=== PATIENT | female | born 1980 | race Caucasian/White ===

== ENCOUNTER 2022-09-02 17:29 | Emergency (ER) | payer OTHER, SELFPAY ==
[2022-09-02 17:43] VITALS: BP 130/77; PULSE 78; RESP 18; TEMP 36.3; O2SAT 100
--- NOTE | 2022-09-02 18:15 | ED.URI ---
HPI - URI/Sore Throat General Chief Complaint: Upper Respiratory Infection Stated Complaint: Vomiting,Body Aches,Cough Time Seen by Provider: 09/02/22 18:00 Source: patient Mode of arrival: ambulatory Limitations: no limitations History of Present Illness HPI Narrative: Patient presents today complaining of a one-week history of cough congestion with a 2 day history of vomiting, body aches, headache sweats, nausea, and subjective fever. Patient vomited once yesterday, but none since then. Denies sore throat. She has tried no [id number] treatment prior to arrival. Related Data Home Medications Medication Instructions Recorded Confirmed diclofenac sodium 75 mg 75 mg PO DAILY 09/02/22 09/02/22 tablet,delayed release duloxetine 30 mg capsule,delayed 30 mg PO DAILY 09/02/22 09/02/22 release omeprazole 20 mg capsule,delayed 20 mg PO DAILY 09/02/22 09/02/22 release Allergies Allergy/AdvReac Type Severity Reaction Status Date / Time No Known Allergies Allergy Verified 09/02/22 17:56 Review of Systems Review of Systems: CONSTITUTIONAL: Denies chills. + Body aches, fever, sweats EYES: Denies visual changes, redness, or discharge. ENT: Denies rhinorrhea, sore throat, or otalgia.+ congestion CARDIOVASCULAR: Denies chest pain, palpitations, or edema. RESPIRATORY: Denies dyspnea.+ cough GASTROINTESTINAL: Denies abdominal pain, or diarrhea.+ nausea, vomiting GENITOURINARY: Denies dysuria or hematuria. SKIN: Denies rash, itching, or wounds. MUSCULOSKELETAL: Denies back pain, joint pain, or myalgia. NEUROLOGIC: Denies numbness, tingling, or weakness.+ headache PSYCH: Denies depression or anxiety. [facility] Past Medical History Medical History (Updated 09/02/22 @ 18:20 by Bernice Aguila, GOLF SUPERINTENDENT, ) Ankylosing spondylitis Comments At time of signature, I have reviewed and agree with nursing past medical, surgical, social and family history unless otherwise noted. Please see nursing chart for further information. There is no relevant family history pertinent to the presenting complaint Exam Narrative: GENERAL: mildly ill-appearing, well-nourished, and in no acute distress. HEAD: Normocephalic, atraumatic. EYES: EOMI. No redness or drainage. Conjunctivae normal. ENT: Mucous membranes pink and moist. Nares clear. No rhinorrhea. TMs normal bilaterally. Throat normal. Uvula midline. NECK: Normal AROM. Supple. No lymphadenopathy. CHEST: No respiratory distress. Clear to auscultation. HEART: Regular rate and rhythm. No murmur appreciated. Normal peripheral pulses. ABDOMEN: Soft, nontender, nondistended, normal active bowel sounds. EXTREMITIES: Normal range of motion. No edema. SKIN: Warm, dry, no rash. Capillary refill normal. Normal skin turgor. NEURO: No focal deficits. Alert and oriented x3. Gait steady. PSYCH: Normal affect. No signs of depression or anxiety. Course Course Level of Care: Express Care Visit Vital Signs Vital signs: Vital Signs Temperature 97.3 F L 09/02/22 17:43 Pulse Rate 78 09/02/22 17:43 Respiratory Rate 18 09/02/22 17:43 Blood Pressure 130/77 09/02/22 17:43 Pulse Oximetry 100 09/02/22 17:43 Oxygen Delivery Room Air 09/02/22 17:43 Temperature 97.3 F L 09/02/22 17:43 Pulse Rate 78 09/02/22 17:43 Respiratory Rate 18 09/02/22 17:43 Blood Pressure 130/77 09/02/22 17:43 Pulse Oximetry 100 09/02/22 17:43 Oxygen Delivery Room Air 09/02/22 17:43 Reviewed. Pt has been instructed to follow up with her PCP regarding her elevated blood pressure today. MDM - URI/Sore Throat Differential Diagnosis Differential diagnosis: Likely upper respiratory infection, viral infection and influenza Lab Data Attestation: I reviewed the patient's lab results. Labs: Influenza A Screen Negative Reference Range: Negative Influenza B Screen Negative
== END 2022-09-02 18:22 | disposition home or self-care (01) ==
PROVIDERS: Emergency Provider Nurse Practitioner
DX: B34.9 Viral infection, unspecified (principal)
CPT/HCPCS: 87804; 99213; G0463

== ENCOUNTER 2022-11-25 07:44 | Outpatient (CLI) | payer OTHER, SELFPAY ==
--- NOTE | ~2022-11-25 | PE_ITS ---
EXAMINATION: PET skull to mid thigh DATE: 11/25/2022 09:44 INDICATION: Lung cancer TECHNIQUE: Blood glucose level was 86 mg/dL. 9.822 mCi of 18-fluorodeoxyglucose (18-FDG) was administ ered i.v. Low dose computed tomography (CT) images were acquired from the base of the brain to the pr oximal thighs for attenuation correction and anatomic localization. Positron emission tomography (PET ) images were acquired in the same distribution beginning 59 minutes after injection. Images includin g fused PET/CT images were reconstructed in axial, coronal, and sagittal planes. Automated exposure c ontrol technique was employed. The dose-length product was 481.20mGy-cm. COMPARISON: None FINDINGS: Head/neck: There is symmetric increased activity in the oral cavity, palatine tonsils, parotid glands, submandi bular glands, laryngeal muscles and ocular muscles without CT correlate, likely physiologic. No patho logically enlarged cervical lymphadenopathy or suspicious foci of increased FDG uptake in the visuali zed head or neck. Chest: Left-sided carotid bulb stimulator in expected position. 10 x 7 mm spiculated nodule in the superior segment of the left lower lobe with minimal FDG activity which remains lower than the level of the bl ood pool with maximal SUV of 2.3. No other pulmonary nodules, pneumonia, pulmonary edema or pleural e ffusion. Heart size is normal. No pericardial effusion. Thoracic aorta is normal in caliber. Mild upt karen extending along the distal esophagus which appears normal on CT likely related to salivary activi ty. No pathologically enlarged or FDG avid thoracic lymphadenopathy. Abdomen/pelvis/proximal thighs: Physiologic renal accumulation and excretion of FDG activity in the kidneys, bladder and along portio ns of ureters. Normal degree and heterogenous pattern of increased uptake throughout the liver withou t radiologic correlate or dominant FDG avid lesion. The gallbladder, pancreas, spleen and bilateral a drenal glands are normal. Mild to moderate uptake scattered throughout the bowels without radiologic correlate, also likely physiologic. There is moderate colonic diverticulosis with a sigmoid predomina nce. There is no adjacent inflammatory change to suggest diverticulitis. Normal appendix. Partial r im calcification along with a uterine fibroid. 2.7 cm right ovarian cyst. Small amount of likely phys iologic free fluid in the cul-de-sac. No other abnormal foci of increased FDG uptake or pathologicall y enlarged lymphadenopathy in the abdomen, pelvis or proximal thighs. Musculoskeletal: No suspicious lytic, blastic or FDG avid bone lesions. IMPRESSION: 1. Minimal FDG uptake associated with a 10 x 7 mm nodule in the superior segment of the left lower lo be. While reassuring this does not absolutely exclude a very slowly growing malignancy. Correlate wit h any prior outside imaging and consider 6 month follow-up noncontrast chest CT. Reviewed, dictated and finalized at location A. F CLINICAL OFFICER IMPRESSION: 1. Minimal FDG uptake associated with a 10 x 7 mm nodule in the superior segmen t of the left lower lobe. While reassuring this does not absolutely exclude a v kalina slowly growing malignancy. Correlate with any prior outside imaging and con mill operator helper 6 month follow-up noncontrast chest CT.
[2022-11-25 08:12] LABS: Glucose Point of Care 86 mg/dl (65-105)
== END 2022-11-25 07:45 | disposition home or self-care (01) ==
PROVIDERS: PCP Family Medicine; Visit Provider Internal Medicine Critical Care Medicine
DX: R91.1 Solitary pulmonary nodule (principal)
CPT/HCPCS: 78815; A9552

== ENCOUNTER 2022-12-06 10:04 | Outpatient (CLI) | payer OTHER, SELFPAY ==
--- NOTE | 2022-12-06 14:22 | WPDPFTINT ---
PFT Procedure Performed PFT Procedure Performed Spirometry with Pre/Post Bronchodilator Plethysmography (Lung Vol) Diffusing Cap (DLCO) Flow Vol Loop PFT Interpretation This is a pulmonary function test with pre and post-bronchodilator spirometry, plethysmography and diffusing capacity. The test was performed and results interpreted in accordance with the 2019 and 2005 ATS/ERS Task Force guidelines respectively using the Global Lung Function Initiative-2012 reference equations. Patient demonstrated good effort and cooperation. Reproducibility criteria were met. The quality of the pre bronchodilator spirometry maneuver was Grade A and post bronchodilator spirometry maneuver was Grade A. Findings: Spirometry: The contour the inspiratory and expiratory flow tracing are normal. The pre bronchodilator FVC is 3.50 L, 100% predicted. The pre bronchodilator FEV1 is 2.71 L, 95% predicted. The pre bronchodilator FEV1: FVC ratio 77%. The post bronchodilator FVC is 3.29 L, representing a 6% decrease. The post bronchodilator FEV1 is 2.76 L, representing a 2% increase. The post bronchodilator FEV1: FVC ratio was 84%. Plethysmography: The total lung capacity is 4.76 L, 97% predicted. The functional residual capacity is 2.86 L, 105% predicted. The functional residual volume is 1.26 L, 79% predicted. Diffusing capacity: The diffusing capacity unadjusted for hemoglobin and carboxyhemoglobin is 20.9, 90% predicted. The diffusing capacity adjusted for alveolar volume is 5.15, 108% predicted Impression: The spirometry is normal without evidence of an obstructive abnormality. There is no significant improvement after inhaling a single dose of albuterol. The lung volumes are normal. The diffusing capacity is normal. There are no prior studies for comparison
--- NOTE | 2022-12-06 14:24 | WPDSIXMINUTE ---
Six Minute Walk Procedure Procedure Performed Pulmonary Stress Test (6 min walk) Six Minute Walk Six Minute Walk: This is a 6 minute walk test. The test was performed and interpreted in accordance with the 2014 ERS/ATS task force guidelines. Findings: The patient's resting room air oxygen saturation measured by pulse oximetry was 98% and heart rate was 87 bpm. Patient ambulated for 396 meters and oxygen saturation remained 91 to 96%. Heart rate at the end of the study was 107 bpm. The patient did not qualify for supplemental oxygen at rest or with ambulation. There are no prior studies for comparison.
== END 2022-12-06 10:05 | disposition home or self-care (01) ==
PROVIDERS: PCP Family Medicine; Visit Provider Internal Medicine Critical Care Medicine
DX: R06.09 Other forms of dyspnea (principal); U09.9 Post COVID-19 condition, unspecified
CPT/HCPCS: 94060; 94618; 94726; 94729

== ENCOUNTER 2023-02-07 14:58 | Outpatient (CLI) | payer OTHER, SELFPAY ==
--- NOTE | ~2023-02-07 | MM_ITS ---
EXAMINATION: MM screening morenita BI w shahana HISTORY: Screening mammogram TECHNIQUE: Craniocaudal and mediolateral oblique 3-D tomosynthesis images were obtained and synthetic 2-D images were generated. CAD analysis was submitted and interpreted. COMPARISON: No prior mammogram is available for comparison at this institution. BREAST PARENCHYMAL COMPOSITION: The breasts are heterogeneously dense, which may obscure small masses . FINDINGS: RIGHT BREAST: An asymmetry is present in the posterior third of the outer breast on the craniocaudal view. LEFT BREAST: An asymmetry is present in the posterior third of the inner breast on the craniocaudal v iew. IMPRESSION: 1. Bilateral breast asymmetries which may represent the patient's baseline however no comparison is c urrently available. 2. Comparison with prior mammograms is necessary. BI-RADS Category 0: Incomplete: Needs comparison with prior mammograms. Reviewed, dictated and finalized at location A. IMPRESSION: 1. Bilateral breast asymmetries which may represent the patient's baseline chicas faustina no comparison is currently available. 2. Comparison with prior mammograms is necessary. BI-RADS Category 0: Incomplete: Needs comparison with prior mammograms.
== END 2023-02-07 14:59 | disposition home or self-care (01) ==
LOC: ANHIMG 15:02
PROVIDERS: PCP Family Medicine; Visit Provider Family Medicine
DX: Z12.31 Encounter for screening mammogram for malignant neoplasm of breast (principal); R92.8 Other abnormal and inconclusive findings on diagnostic imaging of breast
CPT/HCPCS: 77063; 77067

== ENCOUNTER 2023-03-21 12:19 | Outpatient (CLI) | payer OTHER, SELFPAY ==
--- NOTE | ~2023-03-21 | MMUS_ITS ---
EXAMINATION: MM diagnostic morenita BI w shahana, US breast BI limited HISTORY: Bilateral mammographic asymmetries reported on 02/07/2023 screening mammogram TECHNIQUE: Additional 3-D tomosynthesis images of both breasts were performed and synthetic 2-D image s were generated. CAD analysis was submitted and interpreted. High resolution upper outer and lower o uter quadrant right breast ultrasound examination and upper inner and lower inner quadrant left breas t ultrasound examination was performed. COMPARISON: 02/07/2023 bilateral screening mammogram 07/11/2020, 12/05/2018 outside mammogram examinations. FINDINGS: MAMMOGRAPHIC FINDINGS: Bilateral mammographic asymmetries are noted without discrete suspicious mass or architectural distor tion. Low-density around 6.5 mm circumscribed opacity with halo sign is noted in the lower outer right mayra st (ML Tomosynthesis image 14/) ULTRASOUND: Right breast: 6:00 5 cm from nipple: 3.6 x 4.4 x 5.4 mm sonolucency consistent with simple cysts 7:00 near nipple: 7.6 x 4.9 x 7.6 mm sonolucency with through transmission posterior enhancement cons istent with simple cyst No suspicious mass or shadowing is detected in the upper outer or lower outer quadrants of the right breast. Left breast: No suspicious mass or shadowing, cyst or other significant sonographic finding is noted in the upper or lower inner quadrants of the left breast.. IMPRESSION: 1. Benign findings 2. Routine mammographic screening is recommended BI-RADS Category 2: Benign finding(s). Reviewed, dictated and finalized at location A. IMPRESSION: 1. Benign findings 2. Routine mammographic screening is recommended BI-RADS Category 2: Benign finding(s).
== END 2023-03-21 12:20 | disposition home or self-care (01) ==
LOC: ANHIMG 12:27
PROVIDERS: PCP Family Medicine; Visit Provider Family Medicine
DX: R92.8 Other abnormal and inconclusive findings on diagnostic imaging of breast (principal)
CPT/HCPCS: 76642; 77062; 77066; G0279

== ENCOUNTER 2023-08-09 12:36 | Outpatient (CLI) | payer OTHER, SELFPAY ==
--- NOTE | ~2023-08-09 | CT_ITS ---
CT Scan of the Chest without Contrast: Clinical Indication: Pulmonary nodule Technique: Contiguous sections were acquired throughout the chest without intravenous contrast. Dose reduction technique was used on this scan by utilizing automated exposure control and iterative recon struction technique. The dose-length product (DLP) was 109.98 mGy-cm. COMPARISON: PET/CT dated 11/25/2022 Findings: There is no evidence of any significant mediastinal, hilar or axillary lymphadenopathy. The mediastin al soft tissues appear normal. There is no evidence of pleural or pericardial effusion. Stable somewhat irregular 10 mm nodule noted in the superior segment left lower lobe. No new pulmonar y abnormality seen. Images through the upper abdomen reveal no abnormalities. Mild compression deformity of T11 noted. Impression: Stable 10 mm nodule superior segment left lower lobe. Continued follow-up to document 2 years of stab ility is advised. Mild chronic compression deformity of T8. Reviewed, dictated and finalized at [facility]. 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 Continued follow-up to do cument 2 years of stability is advised. Mild chronic compression deformity of T8.
== END 2023-08-09 12:37 | disposition home or self-care (01) ==
LOC: ANHIMG 12:39
PROVIDERS: PCP Family Medicine; Visit Provider Internal Medicine Critical Care Medicine
DX: R91.1 Solitary pulmonary nodule (principal); M48.54XA Collapsed vertebra, not elsewhere classified, thoracic region, initial encounter for fracture
CPT/HCPCS: 71250